=== PATIENT | female | born 2000 | race Caucasian/White ===

== ENCOUNTER 2018-11-04 13:11 | Emergency (ER) | payer OTHER ==
[2018-11-04 13:24] VITALS: BP 143/88; TEMP 99.1; BMI 41.1
[2018-11-04] MEDS ORDERED: TORADOL IM STA (13:51)
[2018-11-04 14:04] LABS: URINE PREGNANCY TEST NEGATIVE (NEGATIVE)
[2018-11-04] MEDS ORDERED: LIDOCAINE HCL 1% SDV IM STA (14:14)
[2018-11-04] MEDS ORDERED: ROCEPHIN IM STA (14:14)
--- NOTE | 2018-11-04 14:19 | ED.PDOC ---
General ED Provider: Dr. ELIZABETH WHITEHEAD Chief Complaint: Back Pain Stated Complaint: LOW BACK PAIN ACUTE ONSET NO TRAUMA Time Seen by Physician: 13:30 (SEEN WITH AMAURI AND HER MOTHER AT ALL TIMES ) Mode of Arrival: Walk-In Information Source: Patient Exam Limitations: No limitations Nursing and Triage Documentation Reviewed and Agree: Yes Does patient meet sepsis criteria?: No System Inflammatory Response Syndrome: Not Applicable Sepsis Protocol: For patient's 13 years and over: Temp is 96.8 and below OR 101 and greater Pulse >90 BPM Resp >20/minute Acutely Altered Mental Status Are patient's symptoms suggestive of a new infection, such as: -Pneumonia -Skin, Soft Tissue -Endocarditis -UTI -Bone, Joint Infection -Implantable Device -Acute Abdominal Infection -Wound Infection -Meningitis -Blood Stream Catheter Infection -Unknown Musculoskeletal Complaint Exam - Back Pain Complaint/Exam Mechanism of Injury: Reports: No known trauma Onset/Duration: TODAY ACUTE AT WORK Symptoms Are: Resolved Timing: Intermittent Episodes Lasting: Minutes Initial Severity: Moderate Current Severity: None Location: Reports: Discrete (LUMBAR) Character: Reports: Aching Aggravating: Reports: Movements, Lifting, Bending, Walking Alleviating: Reports: Rest Associated Signs and Symptoms: Reports: Flank pain (LEFT). Denies: Swelling, Redness, Bruising, Fever, Weakness, Numbness, Tingling, Abdominal pain, Bladder incontinence, Bowel incontinence, Weight loss, Pain with weight bearing Related History: Reports: Similar episode TAD Risk Factors: Reports: None Cauda Equina Risk Factors: Reports: None Epidural Abcess Risk Factors: Reports: None Related Surgical History: Reports: None Focal Tenderness: No Paraspinal Muscle Tenderness: No Paraspinal Muscle Spasm: No Scoliosis: No Lordosis: No Kyphosis: No SLR Test: Right Negative, Left Negative Hip Motion Testing Pain: Right Negative, Left Negative Focal Weakness: Present: None Focal Sensory Loss: Present: None Gait: Present: Normal Differential Diagnoses: Renal Colic, Strain, Sprain ( UTI) Review of Systems - Review Of Systems Constitutional: Reports: No symptoms Eyes: Reports: No symptoms Ears, Nose, Mouth, Throat: Reports: No symptoms Respiratory: Reports: No symptoms Cardiac: Reports: No symptoms GI: Reports: No symptoms : Reports: No symptoms Musculoskeletal: Reports: Back pain Skin: Reports: No symptoms Neurological: Reports: No symptoms Endocrine: Reports: No symptoms Hematologic/Lymphatic: Reports: No symptoms All Other Systems: Reviewed and Negative Past Medical History - Past Medical History Previously Healthy: Yes Endocrine: Reports: Other Cardiovascular: Reports: None Respiratory: Reports: None Hematological: Reports: None Gastrointestinal: Reports: None Genitourinary: Reports: Other Neuro/Psych: Reports: None Musculoskeletal: Reports: None Cancer: Reports: None Last Menstrual Period: now Other Pertinent Past Medical History: PCOS - Surgical History General Surgical History: Reports: Other ( (APLASTIC ANEMIA )) - Family History Family History: Reports: Unknown - Social History Smoking Status: Never smoker Hx Substance Use: No Alcohol Screening: None Physical Exam - Physical Exam Appearance: Well-appearing, No pain distress, Well-nourished Eyes: APRIL, EOMI, Conjunctiva clear ENT: Ears normal, Nose normal, Oropharynx normal Respiratory: Airway patent, Breath sounds clear, Breath sounds equal, Respirations nonlabored Cardiovascular: RRR, Pulses normal, No rub, No murmur GI/: Soft, Nontender, No masses, Bowel sounds normal, No Organomegaly Musculoskeletal: Normal strength, ROM intact, No edema, No calf tenderness Skin: Warm, Dry, Normal color Neurological: Sensation intact, Motor intact, Reflexes intact, Cranial nerves intact, Alert, Oriented Psychiatric: Affect appropriate, Mood appropriate Critical Care Note - Critical Care Note Total Time (mins): 0 Course - Course Hematology/Chemistry: 11/04/18 14:13 11/04/18 14:13 Orders, Labs, Meds: Lab Review 11/04/18 11/04/18 11/04/18 13:50 13:50 14:13 WBC 8.16 RBC 4.60 Hgb 11.8 L Hct 37.4 MCV 81.3 MCH 25.7 L MCHC 31.6 L RDW Coeff of Rosalie 14.4 Plt Count 270 Immature Gran % (Auto) 0.1 Neut % (Auto) 75.6 Lymph % (Auto) 17.4 [place] % (Auto) 4.9 Eos % (Auto) 1.6 Baso % (Auto) 0.4 Immature Gran # (Auto) 0.0 Neut # (Auto) 6.2 Lymph # (Auto) 1.4 [place] # (Auto) 0.4 Eos # (Auto) 0.1 Baso # (Auto) 0.0 Sodium Potassium Chloride Carbon Dioxide Anion Gap BUN Creatinine Estimated GFR (MDRD) BUN/Creatinine Ratio Glucose Calcium Total Bilirubin AST ALT Alkaline Phosphatase Total Protein Albumin Globulin Albumin/Globulin Ratio Urine Color Yellow Urine Clarity Turbid Urine pH 6.0 Ur Specific [place] >=1.030 Urine Protein 2+ Urine Glucose (UA) Negative Urine Ketones Trace Urine Blood 3+ Urine Nitrite Negative Urine Bilirubin 1+ Urine Urobilinogen 1.0 Ur Leukocyte Esterase Negative Urine Microscopic RBC 30-50 Ur Squamous Epith Cells 10-20 Urine Mucus 4+ Urine Test Negative 11/04/18 14:13 WBC RBC Hgb Hct MCV MCH MCHC RDW Coeff of Rosalie Plt Count Immature Gran % (Auto) Neut % (Auto) Lymph % (Auto) [place] % (Auto) Eos % (Auto) Baso % (Auto) Immature Gran # (Auto) Neut # (Auto) Lymph # (Auto) [place] # (Auto) Eos # (Auto) Baso # (Auto) Sodium 137.7 Potassium 3.82 Chloride 104.6 Carbon Dioxide 26.9 Anion Gap 10.02 BUN 9.1 Creatinine 0.69 Estimated GFR (MDRD) 108.00 BUN/Creatinine Ratio 13.18 Glucose 99.2 Calcium 9.44 Total Bilirubin 0.36 AST 31.5 ALT 28.5 Alkaline Phosphatase 116.1 Total Protein 8.09 Albumin 4.54 Globulin 3.55 Albumin/Globulin Ratio 1.27 Urine Color Urine Clarity Urine pH Ur Specific [place] Urine Protein Urine Glucose (UA) Urine Ketones Urine Blood Urine Nitrite Urine Bilirubin Urine Urobilinogen Ur Leukocyte Esterase Urine Microscopic RBC Ur Squamous Epith Cells Urine Mucus Urine Test Orders Category Date Time Status CBC W/ AUTO DIFF Stat LAB 11/04/18 14:13 Completed COMPREHENSIVE METABOLIC PANEL Stat LAB 11/04/18 14:13 Completed URINALYSIS C & S IF INDICATED Stat LAB 11/04/18 13:50 Completed URINE Stat LAB 11/04/18 13:50 Completed Ceftriaxone Sodium [Rocephin] MEDS 11/04/18 14:14 Discontinued 1 gm IM ONCE STA Ketorolac Tromethamine [Toradol] MEDS 11/04/18 13:51 Discontinued 60 mg IM ONCE STA Lidocaine HCl/Pf [Lidocaine HCl 1% Sdv] MEDS 11/04/18 14:14 Discontinued 2.1 ml IM ONCE STA CT ABD/PEL WO RENAL STONE PROT Stat RADS 11/04/18 13:51 Completed Medications Discontinued Medications Generic Name Dose Route Start Last Admin Trade Name Freq PRN Reason Stop Dose Admin Ceftriaxone Sodium 1 gm 11/04/18 14:14 11/04/18 14:47 Rocephin IM 11/04/18 14:15 1 gm ONCE STA Administration Ketorolac Tromethamine 60 mg 11/04/18 13:51 11/04/18 14:10 Toradol IM 11/04/18 13:52 60 mg ONCE STA Administration Lidocaine HCl 2.1 ml 11/04/18 14:14 11/04/18 14:46 Lidocaine Hcl 1% Sdv IM 11/04/18 14:15 2.1 ml ONCE STA Administration Vital Signs: Temp Pulse Resp BP Pulse Ox 11/04/18 13:11 99.1 F 87 20 143/88 H 98 Departure - Departure Time of Disposition: 16:00 Disposition: HOME SELF-CARE Discharge Problem: Backache, Renal stone UTI (urinary tract infection) Qualifiers: Urinary tract infection type: site unspecified Hematuria presence: with hematuria Qualified Code(s): N39.0 - Urinary tract infection, site not specified Instructions: Urinary Tract Infection in Women (ED) Condition: Good Pt referred to PMD for follow-up: Yes IPMP verified?: No Additional Instructions: Please call your Family Physician as soon as possible to schedule a follow-up appointment. Bactrim DS twice a day for 5 days (10 tabs) Start medication in the am Allergies/Adverse Reactions: Allergies babanas Adverse Reaction (Uncoded 11/04/18 13:17) Home Medications: Ambulatory Orders 1 [No Reported Medications] 11/04/18 Disposition Discussed With: Patient, Family
--- NOTE | 2018-11-04 14:50 | CT ---
EXAM: CT of the abdomen pelvis without contrast History: Left flank pain. Technique: Multiplanar CT images through the abdomen pelvis were obtained without the administration of IV contrast Findings: Lung bases are clear. No acute osseous abnormalities. No discrete gallstones identified by CT. No focal liver or splenic lesions. No peripancreatic infla mmation. Adrenal glands are unremarkable. 3 mm calculus within the right kidney. 2 mm calculus wit hin the left kidney. 2 mm calculus within the distal left ureter causing mild left hydronephrosis. No bowel obstruction. The appendix is not dilated or inflamed. No bladder wall thickening. Adnexal structures appear appropriate for patient's age. No free air and no ascites. Small fat-containing umbilical hernia Impression: 1. 2 mm calculus within the distal left ureter causing mild left hydronephrosis. 2. Bilateral nephrolithiasis
== END 2018-11-04 15:30 | disposition home or self-care (01) ==
LOC: ED 13:11
DX: N20.0 Calculus of kidney (principal); N39.0 Urinary tract infection, site not specified
CPT/HCPCS: 36415; 74176; 80053; 81001; 81025; 85025; 96372; 99283

== ENCOUNTER 2019-03-13 14:02 | Outpatient (CLI) | END 2019-03-13 14:03 | disposition home or self-care (01) | LOC: LAB 14:02 | PROVIDERS: ATTEND Nurse Practitioner | DX: Z01.812 Encounter for preprocedural laboratory examination (principal); Z11.59 Encounter for screening for other viral diseases; Z11.4 Encounter for screening for human immunodeficiency virus [HIV]; Z11.8 Encounter for screening for other infectious and parasitic diseases; Z11.3 Encounter for screening for infections with a predominantly sexual mode of transmission | CPT/HCPCS: 36415; 86592; 86704; 86705; 86709; 86803; 87015; 87045; 87177; 87329; 87338; 87340; 87389; 87493; 87899 ==

== ENCOUNTER 2019-07-07 17:07 | Outpatient (CLI) | END 2019-07-07 17:08 | disposition home or self-care (01) | LOC: RHC-LAB 17:07 → FCC-LAB 17:08 | PROVIDERS: ATTEND Family Medicine | DX: N20.0 Calculus of kidney (principal) | CPT/HCPCS: 87086 ==

== ENCOUNTER 2019-07-08 07:19 | Outpatient (CLI) ==
--- NOTE | 2019-07-08 15:30 | CT ---
EXAM: CT of the abdomen pelvis without contrast History: Left flank pain. Comparison: CT abdomen pelvis 11/04/2018 Technique: Multiplanar CT images through the abdomen pelvis were obtained without the administration of IV contrast Findings: Lung bases are clear. No acute osseous abnormalities. No gallstones identified by CT. No focal liver or splenic lesions. No peripancreatic inflammation. Adrenal glands are unremarkable. 3 mm calculus within the inferior pole of the right kidney. 4 mm calculus within the proximal left ureter causing mild left hydronephrosis. No bladder wall thickenin g. Adnexal structures appear appropriate for patient's age. No bowel obstruction. No free air and no ascites. The appendix is normal. No perirectal inflammation. Impression: 1. 4 mm calculus within the proximal left ureter causing mild left hydronephrosis. 2. Nonobstructing right nephrolithiasis
== END 2019-07-08 07:20 | disposition home or self-care (01) ==
LOC: LAB 07:19
PROVIDERS: ATTEND Family Medicine
DX: N20.0 Calculus of kidney (principal)
CPT/HCPCS: 36415; 80053; 85025